=== PATIENT | female | born 1985 | race Caucasian/White ===

== ENCOUNTER 2016-12-25 16:41 | Emergency (ER) | payer OTHER ==
[~2016-12-25] VITALS: Ht 160 cm; Wt 100.0 kg
[~2016-12-25 16:41] MED LIST: ALBU18HF INHALATION; ALBU8.5H3 INH; AZIT250T94 PO; CETI1TAB6 PO; LEVO750T25 PO; NAPH15DR22 BOTH EYES; ONDA4TAB35 PO; POLY10DR19 LEFT EYE; PRED20TA PO; RTPRO NEB
[2016-12-25 17:04] VITALS: Ht 160 cm; Wt 100.0 kg
--- NOTE | 2016-12-25 19:05 | ERD ---
ER Documentation Chief Complaint Date/Time DATE: 12/25/16 TIME: 19:03 Chief Complaint right knee pain/injury HPI 31-year-old female presents here in emergency department for complaints of right knee pain started one week ago. Patient describes the pain as throbbing pain, 6/10 scale, is worse upon movement, accompanied with swelling. Patient denies any numbness or tingling. Patient denies any deformity. Patient denies any direct trauma on affected area. Patient denies any fever or chills. Patient is obese. ROS All systems reviewed and are negative except as per history of present illness. Medications Home Meds Active Scripts Prednisone* (Prednisone*) 20 Mg Tab, 40 MG PO DAILY for 4 Days, #8 TAB 0 Refills Prov:DIGNA SHERIFF PA-C 08/18/16 Albuterol Sulfate* (Ventolin HFA*) 18 Gm Hfa.aer.ad, 2 PUFF INHALATION Q6H for 30 Days, #1 INHALER 0 Refills Prov:DIGNA SHERIFF PA-C 08/18/16 Polymyxin B Sulfate-TMP* (Polymyxin B-TMP Eye Drops*) 10 Ml Drops, 1 DROP LEFT EYE QID for 7 Days, EA Prov:FELIX SANTANA NP 05/18/16 Ondansetron Hcl* (Zofran* ODT) 4 mg -ODT Tab.disper, 4 MG PO Q6 Y for NAUSEA AND /OR VOMITING, #10 TAB Prov:OPAL ZAPATA PA-C 03/19/16 Naphazoline-Pheniramine* (Visine-A*) 15 Ml Drops, 2 DROP BOTH EYES Q4H Y for RED EYES for 10 Days, EA Prov:KAREN PATEL I. REPAIR MILLER 03/03/16 Cetirizine/Pseudoephedrine (Zyrtec-D) 5-120 Mg Tab.er.12h, 1 TAB PO Q12 for 10 Days, TAB Prov:KAREN PATEL I. REPAIR MILLER 03/03/16 Albuterol Sulfate* (Proventil* Neb) 0.083% Neb, 2.5 MG NEB Q4 Y for SHORTNESS OF BREATH, #30 EA Prov:OPAL ZAPATA PA-C 12/04/15 Levofloxacin* (Levaquin*) 750 Mg Tablet, 750 MG PO DAILY for 5 Days, TAB Prov:OPAL ZAPATA PA-C 12/04/15 Albuterol Sulfate* (Proair HFA*) 8.5 Gm Hfa.aer.ad, 2 PUFF INH Q4, #1 INHALER Prov:OPAL ZAPATA PA-C 12/02/15 Prednisone* (Prednisone*) 20 Mg Tab, 40 MG PO DAILY for 4 Days, TAB Prov:OPAL ZAPATA PA-C 12/02/15 Azithromycin* (Zithromax*) 250 Mg Tablet, 250 MG PO .Maria LuisaPACK DIRECTED, #6 TAB TAKE 500 MG (2 TABS) THE FIRST DAY THEN 250 MG (1 TAB) DAYS 2-5 Prov:OPAL ZAPATA PA-C 12/02/15 Allergies Allergies: Coded Allergies: acetaminophen (Verified Allergy, Mild, 08/11/16) hydrocodone (Verified Allergy, Mild, 08/11/16) codeine (Verified Adverse Reaction, Mild, DIZZINESS, NAUSEA, 08/18/16) PMhx/Soc History of Surgery: Yes (TUBALIGATION) Anesthesia Reaction: No Hx Neurological Disorder: No Hx Respiratory Disorders: Yes (ASTHMA) Hx Cardiac Disorders: No Hx Psychiatric Problems: No Hx Miscellaneous Medical Probl: No Hx Alcohol Use: No Hx Substance Use: No Hx Tobacco Use: No FmHx Family History: No coronary disease, No diabetes, No other Physical Exam Vitals Vital Signs Date Time Temp Pulse Resp B/P Pulse Ox O2 Delivery O2 Flow Rate FiO2 12/25/16 17:04 98.8 94 19 116/70 97 Physical Exam GENERAL: The patient is well developed and appropriate for usual state of health, in no apparent distress. CHEST: Clear to auscultation bilaterally. There are no rales, wheezes or rhonchi. HEART: Regular rate and rhythm. No murmurs, clicks, rubs or gallops. No S3 or S4. ABDOMEN: Soft, nontender and nondistended. Good bowel sounds. No rebound or guarding. No gross peritonitis. No gross organomegaly or masses. No Peters sign or McBurney point tenderness. BACK: No midline or flank tenderness. EXTREMITIES: Tenderness on palpation on lateral medial aspect of the right knee with mild swelling noted, no deformity noted, able to do full range of motion without any restriction. Negative anterior and posterior drawer test. Equal pulses bilaterally. There is no peripheral clubbing, cyanosis or edema. Full range of motion about the joints of the body. Grossly neurovascularly intact. NEURO: Alert and oriented. Cranial nerves 2-12 intact. Motor strength in all 4 extremities with 5/5 strength. Sensation grossly intact. Normal speech and gait. SKIN: There is no apparent rash or petechia. The skin is warm and dry. HEMATOLOGIC AND LYMPHATIC: There is no evidence of excessive bruising or lymphedema. No gross cervical, axillary, or inguinal lymphadenopathy. Results 24 hrs PROCEDURE: Right knee radiographs. CLINICAL INDICATION: Right knee pain. TECHNIQUE: Three views. Weight bearing. Frontal, lateral, and oblique. COMPARISON: No prior studies are available for comparison. FINDINGS: There is no fracture or dislocation. The soft tissues are normal. The articular surfaces are intact. There is no lytic or blastic lesion. There is no radiopaque foreign body. IMPRESSION: 1. Unremarkable images of the right knee. RPTAT: QQ .Alen Sellers MD, MD Date Time Electronically viewed and signed by .Alen Sellers MD, MD on 12/25/2016 19:24 .R/ CC: SUSAN WOODSON REPAIR MILLER Procedures/MDM Medical Decision Making: Patient's pain is most likely consistent with a contusion or a sprain. There is no suspicion for neurovascular compromise. Patient has intact sensation and circulation of the affected extremity. There is low suspicion for septic arthritis. Patient does not have any fever. Radiology exams of the affected area does not show any fracture or dislocation. Disposition: Home. Patient is given prescription for ibuprofen for pain, tramadol for severe pain. Patient was advised to elevate the affected area and apply ice on affected area. Patient was advised that if symptoms are worse, numbness, tingling, high fever, unable to move joint, worsening symptoms, to return to emergency department immediately. Otherwise, patient is advised to follow up with the primary care doctor in 5-7 days for reevaluation of symptoms. Departure Diagnosis: Primary Impression: Knee pain Laterality: right Chronicity: acute Qualified Code: M25.561 - Acute pain of right knee Condition: Stable Patient Instructions: Knee Pain, Uncertain Cause Additional Instructions: Patient is given prescription for ibuprofen for pain, tramadol for severe pain. Patient was advised to elevate the affected area and apply ice on affected area. Patient was advised that if symptoms are worse, numbness, tingling, high fever, unable to move joint, worsening symptoms, to return to emergency department immediately. Otherwise, patient is advised to follow up with the primary care doctor in 5-7 days for reevaluation of symptoms. SUSAN WOODSON NP Dec 25, 2016 19:05
--- NOTE | 2016-12-25 19:24 | RADRPT ---
PROCEDURE: Right knee radiographs. CLINICAL INDICATION: Right knee pain. TECHNIQUE: Three views. Weight bearing. Frontal, lateral, and oblique. COMPARISON: No prior studies are available for comparison. FINDINGS: There is no fracture or dislocation. The soft tissues are normal. The articular surfaces are intact. There is no lytic or blastic lesion. There is no radiopaque foreign body. IMPRESSION: 1. Unremarkable images of the right knee. RPTAT: QQ .Alen Sellers MD, MD Date Time Electronically viewed and signed by .Alen Sellers MD, MD on 12/25/2016 19:24 .R/
[2016-12-25] MEDS ORDERED: TRAM50TA2 PO (19:51)
[2016-12-25] MEDS ORDERED: IBUP-1542 PO (19:51)
[2016-12-25 20:20] VITALS: BP 118/74; PULSE 90; RESP 19; TEMP 98.8
== END 2016-12-25 20:20 | disposition home or self-care (01) ==
LOC: FTE 16:41
DX: M25.561 Pain in right knee (principal); J45.909 Unspecified asthma, uncomplicated
CPT/HCPCS: 29505; 73562; Z7502

== ENCOUNTER 2017-03-18 11:45 | Emergency (ER) | payer OTHER ==
[~2017-03-18] VITALS: Ht 160 cm; Wt 110.0 kg
[~2017-03-18 11:45] MED LIST changes: +IBUP-1542 PO; +TRAM50TA2 PO
[2017-03-18 11:53] VITALS: Ht 160 cm; Wt 110.0 kg
[2017-03-18] MEDS ORDERED: KETOROLAC 60 MG INJ IM STA (12:55)
[2017-03-18] MEDS ORDERED: NAPR-260 PO (13:48)
--- NOTE | 2017-03-18 15:36 | ERD ---
ER Documentation Chief Complaint Date/Time DATE: 03/18/17 TIME: 15:32 Chief Complaint right big toe pain HPI 31-year-old female patient with a past medical history of asthma presents to the ED complaining of right great toe pain that started 4 days ago. Patient reports that she has been taking ibuprofen without relief. States that she had a previous tubal ligation. Denies any chest pain, shortness of breath, abdominal pain, nausea, vomiting. Denies any injuries or trauma. States that she feels like it may be gout however is not sure. States that it did not flare from eating any alcohol or red meat. ROS All systems reviewed and are negative except as per history of present illness. Medications Home Meds Active Scripts Naproxen* (Naprosyn*) 500 Mg Tablet, 500 MG PO BID Y for PAIN AND/OR INFLAMMATION, #30 TAB Prov:ANGUS MCINTYRE PA-C 03/18/17 Ibuprofen* (Motrin*) 600 Mg Tab, 600 MG PO Q6H Y for PAIN AND OR ELEVATED TEMP, #30 TAB Prov:SUSAN WOODSON NP 12/25/16 Tramadol HCl (Tramadol HCl) 50 Mg Tablet, 50 MG PO Q6 Y for SEVERE PAIN LEVEL 7- 10, #20 TAB Prov:SUSAN WOODSON NP 12/25/16 Prednisone* (Prednisone*) 20 Mg Tab, 40 MG PO DAILY for 4 Days, #8 TAB 0 Refills Prov:DIGNA SHERIFF PA-C 08/18/16 Albuterol Sulfate* (Ventolin HFA*) 18 Gm Hfa.aer.ad, 2 PUFF INHALATION Q6H for 30 Days, #1 INHALER 0 Refills Prov:DIGNA SHERIFF PA-C 08/18/16 Polymyxin B Sulfate-TMP* (Polymyxin B-TMP Eye Drops*) 10 Ml Drops, 1 DROP LEFT EYE QID for 7 Days, EA Prov:FELIX SANTANA NP 05/18/16 Ondansetron Hcl* (Zofran* ODT) 4 mg -ODT Tab.disper, 4 MG PO Q6 Y for NAUSEA AND /OR VOMITING, #10 TAB Prov:OPAL ZAPATA PA-C 03/19/16 Naphazoline-Pheniramine* (Visine-A*) 15 Ml Drops, 2 DROP BOTH EYES Q4H Y for RED EYES for 10 Days, EA Prov:PATELKAREN I. STONE TRIMMER 03/03/16 Cetirizine/Pseudoephedrine (Zyrtec-D) 5-120 Mg Tab.er.12h, 1 TAB PO Q12 for 10 Days, TAB Prov:KAREN PATEL I. STONE TRIMMER 03/03/16 Albuterol Sulfate* (Proventil* Neb) 0.083% Neb, 2.5 MG NEB Q4 Y for SHORTNESS OF BREATH, #30 EA Prov:OPAL ZAPATA PA-C 12/04/15 Levofloxacin* (Levaquin*) 750 Mg Tablet, 750 MG PO DAILY for 5 Days, TAB Prov:OPAL ZAPATA PA-C 12/04/15 Albuterol Sulfate* (Proair HFA*) 8.5 Gm Hfa.aer.ad, 2 PUFF INH Q4, #1 INHALER Prov:OPAL ZAPATA PA-C 12/02/15 Prednisone* (Prednisone*) 20 Mg Tab, 40 MG PO DAILY for 4 Days, TAB Prov:OPAL ZAPATA PA-C 12/02/15 Azithromycin* (Zithromax*) 250 Mg Tablet, 250 MG PO .ZPACK DIRECTED, #6 TAB TAKE 500 MG (2 TABS) THE FIRST DAY THEN 250 MG (1 TAB) DAYS 2-5 Prov:OPAL ZAPATA PA-C 12/02/15 Allergies Allergies: Coded Allergies: acetaminophen (Verified Allergy, Mild, 08/11/16) hydrocodone (Verified Allergy, Mild, 08/11/16) codeine (Verified Adverse Reaction, Mild, DIZZINESS, NAUSEA, 08/18/16) PMhx/Soc History of Surgery: Yes (TUBALIGATION) Anesthesia Reaction: No Hx Neurological Disorder: No Hx Respiratory Disorders: Yes (ASTHMA) Hx Cardiac Disorders: No Hx Psychiatric Problems: No Hx Miscellaneous Medical Probl: No Hx Alcohol Use: No Hx Substance Use: No Hx Tobacco Use: No Physical Exam Vitals Vital Signs Date Time Temp Pulse Resp B/P Pulse Ox O2 Delivery O2 Flow Rate FiO2 03/18/17 11:53 98.1 77 18 146/61 99 Physical Exam Const: [id number], well-nourished. In no acute distress. Head: Atraumatic, normocephalic Eyes: Normal Conjunctiva without injection ENT: Normal external ear, nose and mouth. Neck: Full range of motion. No meningismus. Resp: Clear to auscultation bilaterally. No wheezing, rhonchi, rales, or crackles. No accessory muscle use. No retractions. Cardio: Regular rate and rhythm, no murmurs Skin: No petechiae or rashes Back: No midline tenderness. No CVA tenderness. Ext: No cyanosis, or edema. Cap refill less than 2 seconds. Distal pulses intact bilaterally. Tenderness to palpation of the base of the left great toe. No surrounding erythema, edema. No warmth to touch. Full range of motion of the IP and MTP joints. Neur: Awake and alert. Normal gait and coordination. Muscle strength 5/5. Sensation intact bilaterally. Psych: Normal Mood and Affect Results 24 hrs Current Medications Medications (Trade) Dose Ordered Sig/Renetta Route PRN Reason Start Time Stop Time Status Last Admin Dose Admin Ketorolac Tromethamine (Toradol) 60 mg ONCE STAT IM 03/18/17 12:55 03/18/17 12:57 DC 03/18/17 13:24 Procedures/MDM This is a 31-year-old female patient complaining of right great toe pain that started 4 days ago. Patient is afebrile and nontoxic-appearing. Patient has normal vital signs. Patient was given Toradol with improvement of her pain. An x-ray of the right foot was discussed with the patient and she stated that she does not believe that she has a fracture at this time. No x-ray indicated as patient is ambulating without difficulty. Patient has full range of motion. No erythema, edema. Patient is neurovascularly intact. Differentials include gout vs toe sprain. Patient's extremity symptoms have stabilized while they have been evaluated in the department and are appropriate for outpatient follow up. No evidence of fractures, dislocations, compartment syndrome, neurologic injury, vascular injury, open joint, open fracture, tendon laceration, septic arthritis, osteomyelitis, DVT, foreign body, or other emergent conditions. Discharge medications: Naproxen Follow up with primary care physician in 1-2 days for further evaluation and treatment. Instructed patient to return to the ED sooner for any worsening symptoms. Patient's questions were answered. Patient understood and agreed with discharge plan. Patient discharged stable. Departure Diagnosis: Primary Impression: Pain of toe Laterality: right Qualified Code: M79.674 - Pain of toe of right foot Condition: Stable Patient Instructions: What Is Gout? Referrals: [facility] YOU HAVE RECEIVED A MEDICAL SCREENING EXAM AND THE RESULTS INDICATE THAT YOU DO NOT HAVE A CONDITION THAT REQUIRES URGENT TREATMENT IN THE EMERGENCY DEPARTMENT. FURTHER EVALUATION AND TREATMENT OF YOUR CONDITION CAN WAIT UNTIL YOU ARE SEEN IN YOUR DOCTORS OFFICE WITHIN THE NEXT 1-2 DAYS. IT IS YOUR RESPONSIBILITY TO MAKE AN APPOINTMENT FOR FOLOW-UP CARE. IF YOU HAVE A PRIMARY DOCTOR --you should call your primary doctor and schedule an appointment IF YOU DO NOT HAVE A PRIMARY DOCTOR YOU CAN CALL OUR PHYSICIAN REFERRAL HOTLINE AT IF YOU CAN NOT AFFORD TO SEE A PHYSICIAN YOU CAN CHOSE FROM THE FOLLOWING [facility] [id number] [facility] [address] [facility] [address] [facility] [address] [facility] [address] [facility] [facility] [facility] [address] [facility]. [facility] [address] [facility]. [facility] YOU HAVE RECEIVED A MEDICAL SCREENING EXAM AND THE RESULTS INDICATE THAT YOU DO NOT HAVE A CONDITION THAT REQUIRES URGENT TREATMENT IN THE EMERGENCY DEPARTMENT. FURTHER EVALUATION AND TREATMENT OF YOUR CONDITION CAN WAIT UNTIL YOU ARE SEEN IN YOUR DOCTORS OFFICE WITHIN THE NEXT 1-2 DAYS. IT IS YOUR RESPONSIBILITY TO MAKE AN APPOINTMENT FOR FOLOW-UP CARE. IF YOU HAVE A PRIMARY DOCTOR --you should call your primary doctor and schedule and appointment IF YOU DO NOT HAVE A PRIMARY DOCTOR YOU CAN CALL OUR PHYSICIAN REFERRAL HOTLINE AT . IF YOU CAN NOT AFFORD TO SEE A PHYSICIAN YOU CAN CHOSE FROM THE FOLLOWING [facility]: [facility] [id number] [place] [address] [facility] [address] [place] [address] [facility] [address] [place] [address] [facility] URGENT CARE/SPECIALTIES Additional Instructions: Call your primary care doctor TOMORROW for an appointment during the next 1-2 days for further evaluation for possible gout.See the doctor sooner or return here if your condition worsens before your appointment time. ANGUS MCINTYRE PA-C Mar 18, 2017 15:36
== END 2017-03-18 14:01 | disposition home or self-care (01) ==
LOC: FTE 11:45
DX: M79.674 Pain in right toe(s) (principal); J45.909 Unspecified asthma, uncomplicated
CPT/HCPCS: 96372; J1885

== ENCOUNTER 2018-01-31 17:15 | Emergency (ER) | END 2018-01-31 17:33 | disposition home or self-care (01) ==

== ENCOUNTER 2018-09-28 10:14 | Emergency (ER) | END 2018-09-28 11:53 | disposition home or self-care (01) ==

== ENCOUNTER 2019-06-01 23:19 | Emergency (ER) | payer OTHER ==
[~2019-06-01] VITALS: Ht 160 cm; Wt 101.7 kg
[~2019-06-01 23:19] MED LIST changes: -ALBU8.5H3 INH; +ALBU8.5H8 INH; +AZIT250T PO; -AZIT250T94 PO; +BEN25 PO; +CETI10CA PO; +D-ME473S2 PO; +FLUT9.9S NASAL; +GUAI5SYR2 PO; -NAPH15DR22 BOTH EYES; +NAPH15DR69 BOTH EYES; +NAPR-985 PO
[2019-06-01 23:22] VITALS: BP 122/76; PULSE 97; RESP 20; Ht 160 cm; Wt 101.7 kg
[2019-06-02] MEDS ORDERED: METHYLPREDNISOLONE 125 MG INJ IM ONE (02:00)
== END 2019-06-02 03:11 | disposition home or self-care (01) ==
LOC: FTE 23:19
DX: S80.861A Insect bite (nonvenomous), right lower leg, initial encounter (principal); S80.862A Insect bite (nonvenomous), left lower leg, initial encounter; J45.909 Unspecified asthma, uncomplicated; W57.XXXA Bitten or stung by nonvenomous insect and other nonvenomous arthropods, initial encounter; Y92.9 Unspecified place or not applicable
CPT/HCPCS: 81025; 96372; J2930; Z7502